=== PATIENT | female | born 1980 | race Caucasian/White ===

== ENCOUNTER 2018-04-20 10:44 | Emergency (ER) | payer OTHER ==
[~2018-04-20] VITALS: Ht 167.6 cm; Wt 87.7 kg
[2018-04-20 10:49] VITALS: BP 125/75
--- NOTE | 2018-04-20 11:01 | NUR ---
AAO X4 PT BIB SELF WITH C/O PRODUCTIVE COUGH SINCE FRIDAY TURNING INTO DRY COUGH TODAY WITH CP AND H/A WHEN COUGHING. DENIES NVD. VSS; PATIENT POSITIONED FOR COMFORT; HOB ELEVATED; BEDRAILS UP X1; BED DOWN. ER MD MADE AWARE OF PT STATUS.
[2018-04-20 11:52] VITALS: BP 125/75
--- NOTE | 2018-04-20 11:54 | NUR ---
Patient discharged with v/s stable. Written and verbal after care instructions given and explained. Patient alert, oriented and verbalized understanding of instructions. Ambulatory with steady gait. All questions addressed prior to discharge. ID band removed. Patient advised to follow up with PMD. Rx of TESSALON PERLES AND PROMETHAZINE WITH CODEINE given. Patient educated on indication of medication including possible reaction and side effects. Opportunity to ask questions provided and answered.
== END 2018-04-20 11:54 | disposition home or self-care (01) ==
LOC: MED 10:44
DX: R05 Cough (principal); E11.9 Type 2 diabetes mellitus without complications
CPT/HCPCS: 71045; 99283; Q0092

== ENCOUNTER 2022-06-06 16:15 | Emergency (ER) | payer OTHER ==
[~2022-06-06] VITALS: Ht 165.1 cm; Wt 95.3 kg
[2022-06-06 16:59] VITALS: BP 142/78
[2022-06-06] MEDS ORDERED: PROM118S5 PO (17:24)
[2022-06-06] MEDS ORDERED: IBUP-2213 PO (17:24)
[2022-06-06] MEDS ORDERED: ALBU0.0912 INH (17:24)
--- NOTE | 2022-06-06 17:33 | NUR ---
Patient discharged with v/s stable. Written and verbal after care instructions given and explained. Patient verbalized understanding. Ambulatory with steady gait. All questions addressed prior to discharge. Advised to follow up with PMD.
== END 2022-06-06 19:32 | disposition home or self-care (01) ==
LOC: MED 16:15
DX: J06.9 Acute upper respiratory infection, unspecified (principal); E11.9 Type 2 diabetes mellitus without complications
CPT/HCPCS: 99283